=== PATIENT | female | born 1980 | race Caucasian/White ===

== ENCOUNTER 2018-07-29 07:26 | Day surgery (SDC) | payer MEDICAID, SELFPAY ==
--- NOTE | 2018-07-29 06:59 | COLE_ITS ---
Colonoscopy Report Date of procedure: 07/29/18 Pre-op diagnosis general: Diarrhea Post-op diagnosis procedure note: other (Chronic inflammation of the bowel and 2 polyps) Procedure: Colonoscopy with polypectomy and biopsies Surgeon: Maty Johnson Anesthesia proc note operative: MAC (Reji Maynard CRNA) Estimated blood loss (mL): 15 Pathology: other (multiple biopsies, 2 polyps) Complications: None Disposition: same day Indications: Mrs. Dobbins is a pleasant 38 year old female with chronic diarrhea. Risks, benefits and complications were reviewed in the office and she wished to proceed. No guarantees were given or implied. Prep: Miralax/Dulcolax Procedure Start Time: 09:00 Procedure End Time: 09:33 Retraction Time: 26 minutes Findings: Chronic inflammation worse in the sigmoid and descending colon. ? UC vs Crohns 2 polyps in the descending colon Procedure Description: After informed consent was obtained the patient was taken to the procedure room and placed in a left decubitous position. Monitors were applied and a time out was done. The patients name, date of , procedure, allergies to medications and metal in their body was reviewed. The patient was then sedated. Once sedated and comfortable a rectal exam was done. External exam was normal. Internal exam revealed a normal sphincter tone and no palpable masses. The scope was then introduced and retroflexed. No internal hemorrhoids were identified. There were a couple of skin tags noted. The scope was then advanced to the cecum without difficulty. The TI and appendiceal orifice were identified. The prep was good. The scope was advanced into the terminal ileum and biopsies were done. There was chronic inflammation with small ulcers and cobbelstoning noted throughout the colon, but worse in the descending and sigmoid colon. The scope was then slowly retracted over 26 minutes back into the rectum. Biopsies were done throughout the colon. 2 polyps were removed in the descending colon. The scope was removed and the patient was woken up and taken back to Same day surgery in stable condition. The patient tolerated the procedure well and there were no immediate complications. Follow up: I will check a CRP and CBC today. I will call the patient with results. I suspect that the patient has UC/Crohns. If she has IBD then will start her on medication and refer to [facility] or [facility] for follow up.
--- NOTE | 2018-07-29 07:00 | PDOC.DSDIS_ITS ---
Discharge Plan Disposition Patient Disposition: HOME Condition: Good Discharge Details Reason For Visit: colonoscopy Attending Provider: Maty Johnson Primary Care Provider: Karena Nixon Home Meds and New Rx's Prescriptions: Continue multivitamin [Daily Multi-Vitamin] tablet 1 tab PO DAILY RF: 0 bupropion HCl 75 mg tablet 75 mg PO DAILY RF: 0 citalopram 40 mg tablet 40 mg PO DAILY RF: 0 calcium carbonate [Calcium 600] 600 mg calcium (1,500 mg) tablet 600 mg PO BID RF: 0 cholecalciferol (vitamin D3) [Vitamin D3] 2,000 unit Capsule 2,000 unit PO BID RF: 0 lactobacillus combination no.4 [Probiotic] 3 billion cell Capsule 3,000 mmu cells PO DAILY RF: 0 Discontinued polyethylene glycol 3350 17 gram powder in packet 255 g PO DAILY Qty: 15 RF: 0 bisacodyl [Dulcolax (bisacodyl)] 5 mg tablet,delayed release (DR/EC) 5 mg PO ONCE Qty: 4 RF: 0 ibuprofen 200 mg tablet 2 tab PO PRN PRN (Reason: fever or pain) RF: 0 Discharge Instructions Instructions: Colonoscopy (DC), Low Fiber Diet (DC) Additional Instructions: Findings: Chronic inflammation. Biopsies were done. This is most likely an inflammatory bowel disease Follow up: I will call with results and then we will make a plan New Medication: none until I have biopsy results Please call or go to ER if you develop: fevers >101.5 Nausea or Vomiting Abdominal pain that is not transient DAY SURGERY UNIT POST COLONOSCOPY INSTRUCTIONS 1. Because there will be medication in your system for the next 24 hours, you may feel a little sleepy. Your coordination will be affected. Therefore: a. Do not drive or operate dangerous equipment for 24 hours. b. Do not drink alcohol beverages for 24 hours (not even beer). c. Plan to go home and rest for the day. 2. Generally there are no restrictions on your activity after a day or so has gone by, but you may feel a bit fatigued for a few days. 3 After you arrive home you may have a light meal and return to a normal diet as you can tolerate it without feeling sick to your stomach. 4. After surgery, you may feel pain or discomfort. This should be only transient , but if it persists please contact your doctor. 5. If there are any questions regarding the findings of your procedure, please feel free to contact your doctor. 6. If you are unable to contact your doctor with a problem, contact the h ospital at [phone]. 7. Continue all your regular medications unless directed otherwise. I understand the above instructions and have no questions. Signature of Patient or Responsible Adult Escort Date/Time Name of Responsible Adult Escort Signature of Nurse Date/Time Activity:: Activity as Tolerated Diet:: low fiber diet Discharge Orders Discharge Orders: Discharge Order (Routine); Ordered 07/29/18 Ordered By: Maty Johnson
[2018-07-29 07:48] VITALS: BP 129/74; PULSE 84; RESP 16; TEMP 36.5; O2SAT 95
[2018-07-29] MEDS: Lactated Ringers 1,000 ML 80 ML IV (07:57)
--- NOTE | 2018-07-29 09:08 | BOWEL_PTH ---
PATIENT: Rosi Dobbins LOC: [facility] U#:[id number] AGE/SX: 38/F ROOM: RE07/29/[address]: Maty Johnson MD : 1980 BED: DIS: 07/29/2018 SPEC #: [id number] RECD: 07/29/18 13:01 STATUS: KRISHNA Makenzie #: [id number] MEGAN: 07/29/18 09:[address]: Maty Johnson DEPT: Surgical Specimen RECD BY: Radha Crawford ENTERED: 07/29/18 13:05 SP TYPE: Bowel OTHR DR: Karena Nixon Tissues: 1 - BIOPSY BOWEL 2 - BIOPSY BOWEL 3 - BIOPSY BOWEL 4 - BIOPSY BOWEL 5 - BIOPSY BOWEL 6 - BIOPSY BOWEL Procedures: GROSS AND MICRO LEVEL 4 Comments: [id number]
[2018-07-29 10:07] VITALS: BP 110/68; PULSE 77; RESP 16; TEMP 36.8; O2SAT 99
[2018-07-29 10:08] LABS: Abs Immature Grans 0.02 k/cumm (0.0-0.09); Absolute Basophil Count 0.03 k/cumm (0.0-0.2); Absolute Eosinophil Count 0.26 k/cumm (0.0-0.7); Absolute Lymphocyte Count 1.83 k/cumm (1.2-3.4); Absolute Monocyte Count 0.96 k/cumm (0.11-0.7); Absolute Neutrophil Count 6.72 k/cumm (1.2-6.7); Basophils % 0.3; Eosinophils % 2.6; HCT 36.5 % (36.0-46.0); HGB 11.6 g/dL (12.0-15.5); Immature Grans % 0.2; Lymphocytes % 18.6; Mean Corp. HGB Concentration 31.8 g/dL (32.0-36.0); Mean Corpuscular Hemoglobin 26.3 pg (27.0-33.0); Mean Corpuscular Volume 82.8 fL (80-95); Mean Platelet Volume 10.1 fL (8.0-11.0); Monocytes % 9.8; Neutrophils % 68.5; Platelet Count 300 x1000/uL (130-400); RBC 4.41 m/cumm (4.00-5.20); RBC Distribution Width 14.6 % (11.7-14.6); White Blood Cell Count 9.82 k/cumm (4.4-10.8)
[2018-07-29 14:35] LABS: C-Reactive Protein 1.56 mg/dL (0.0-0.3)
== END 2018-07-29 11:00 | disposition home or self-care (01) ==
LOC: SUR 07:26
PROVIDERS: PCP Nurse Practitioner; Visit Provider Surgery
PROC: 0DJD8ZZ Inspection of Lower Intestinal Tract, Via Natural or Artificial Opening Endoscopic (ICD-10-PCS; CPT 45378; principal; 2018-07-29 09:00)
DX: K52.9 Noninfective gastroenteritis and colitis, unspecified (principal); K63.5 Polyp of colon
CPT/HCPCS: 45380; 81025; 88305; 85025; 86140

== ENCOUNTER 2018-12-02 09:03 | Outpatient (REF) | payer MEDICAID, SELFPAY ==
--- NOTE | 2018-12-02 08:15 | PAPFT_PTH ---
PATIENT: Rosi Dobbins LOC: [facility] U#:[id number] AGE/SX: 38/F ROOM: RE12/02/[address]: Karena Nixon : 1980 BED: DIS: 12/02/2018 SPEC #: [id number] RECD: 12/02/18 17:58 STATUS: KRISHNA REMakenzie #: [id number] MEGAN: 12/02/18 08:[address]: Karena Nixon DEPT: [facility] Cytology RECD BY: Radha Crawford Tissues: 1 - CX/ENDOCX FOR PAP SMEARS Procedures: PAP THIN PREP/UVM Screening HPV DNA PROBE Comments: [id number]
[2018-12-02 12:57] LABS: ALT 26 U/L (12-78); AST 18 U/L (15-37); Albumin 3.6 g/dL (3.4-5.0); Alkaline Phosphatase 94 U/L (46-116); Anion Gap 9.2 mmol/L (3-11); BUN 18 mg/dL (7-18); Bilirubin, Total 0.3 mg/dL (0.2-1.0); CO2 26.8 mmol/L (21.0-32.0); CREATININE 0.96 mg/dL (0.55-1.02); Calcium 8.6 mg/dL (8.5-10.1); Chloride 103 mmol/L (98-107); Cholesterol 148 mg/dL (50-200); Glucose 86 mg/dL (70-100); HDL Cholesterol 62 mg/dL (40-60); LDL CHOLESTEROL 78 mg/dL (<100); Potassium 4.3 mmol/L (3.5-5.1); Sodium 139 mmol/L (136-145); TSH (W/Ref FT4) 3.13 uIU/mL (0.358-3.74); Total Protein 7.2 g/dL (6.4-8.2); Triglyceride 42 mg/dL (30-150)
== END 2018-12-02 09:23 ==
LOC: NCHCN 09:03
PROVIDERS: PCP Nurse Practitioner; Visit Provider Nurse Practitioner
DX: Z13.29 Encounter for screening for other suspected endocrine disorder (principal); Z13.228 Encounter for screening for other metabolic disorders; Z13.220 Encounter for screening for lipoid disorders; Z00.00 Encounter for general adult medical examination without abnormal findings; Z12.4 Encounter for screening for malignant neoplasm of cervix; Z11.51 Encounter for screening for human papillomavirus (HPV)
CPT/HCPCS: 80053; 80061; 83721; 88142; 84443; 87624

== ENCOUNTER 2019-03-17 10:16 | Outpatient (CLI) | payer MEDICAID, SELFPAY ==
[2019-03-18 09:53] LABS: HBs Antibody, Quant 17.5 mIU/mL; Hepatitis B Surface Ab Positive
[2019-03-18 10:43] LABS: Hep A Total Ab w Rflx IgM Negative (NEGAT)
== END 2019-03-17 10:36 ==
LOC: LBO 10:19 → NCHCO 10:19
PROVIDERS: PCP Nurse Practitioner; Visit Provider Nurse Practitioner
DX: Z11.59 Encounter for screening for other viral diseases (principal); Z00.00 Encounter for general adult medical examination without abnormal findings
CPT/HCPCS: 36415; 86706; 86709

== ENCOUNTER 2021-10-02 02:44 | Outpatient (CLI) | payer BC, SELFPAY ==
[2021-10-02 13:38] LABS: Abs Immature Grans 0.01 10^3/uL (0.0-0.06); Absolute Basophil Count 0.05 10^3/uL (0.0-0.2); Absolute Eosinophil Count 0.22 10^3/uL (0.0-0.7); Absolute Lymphocyte Count 2.69 10^3/uL (1.2-3.4); Absolute Neutrophil Count 4.51 10^3/uL (1.2-6.7); Basophils % 0.6; Eosinophils % 2.7; HCT 38.3 % (36.0-46.0); HGB 12.3 g/dL (11.2-15.7); Immature Grans % 0.1; Lymphocytes % 33.3; MCH 27.6 pg (27.0-33.0); MCHC 32.1 % (32.0-36.0); MCV 85.9 fL (80-95); MPV 10.1 fL (8.0-11.0); Monocytes % 7.4; Neutrophils % 55.9; Nucleated RBC 0 %; Platelet Count 300 10^3/uL (130-400); RBC 4.46 10^6/uL (3.93-5.22); RDW 13.6 % (11.7-14.6); RDW-SD 42.7 fL; WBC 8.08 10^3/uL (4.4-10.8)
[2021-10-02 14:46] LABS: ALT 73 U/L (14-59); AST 25 U/L (15-37); Alkaline Phosphatase 82 U/L (46-116); Anion Gap 8.3 mmol/L (3-11); BUN 12 mg/dL (7-18); Bilirubin, Direct 0.1 mg/dL (0.0-0.2); Bilirubin, Total 0.3 mg/dL (0.2-1.0); C-Reactive Protein 0.16 mg/dL (0.0-0.3); CO2 27.7 mmol/L (21.0-32.0); CREATININE 0.9 mg/dL (0.55-1.02); Calcium 9.1 mg/dL (8.5-10.1); Chloride 103 mmol/L (98-107); Glucose 87 mg/dL (74-106); Potassium 4.3 mmol/L (3.5-5.1); Sodium 139 mmol/L (136-145); Total Protein 7.2 g/dL (6.4-8.2)
== END 2021-10-02 02:45 | disposition home or self-care (01) ==
LOC: LBO 02:44
PROVIDERS: Visit Provider Hospitalist
DX: K51.019 Ulcerative (chronic) pancolitis with unspecified complications (principal)
CPT/HCPCS: 80048; 80076; 85025; 86140

== ENCOUNTER 2021-11-22 01:56 | Outpatient (CLI) | payer BC, SELFPAY ==
[2021-11-22 15:22] LABS: Abs Immature Grans 0.05 10^3/uL (0.0-0.06); Absolute Basophil Count 0.06 10^3/uL (0.0-0.2); Absolute Lymphocyte Count 2.78 10^3/uL (1.2-3.4); Absolute Neutrophil Count 6.48 10^3/uL (1.2-6.7); Basophils % 0.6; Eosinophils % 1.9; HCT 39.5 % (36.0-46.0); HGB 12.6 g/dL (11.2-15.7); Immature Grans % 0.5; Lymphocytes % 26.3; MCH 27.5 pg (27.0-33.0); MCHC 31.9 % (32.0-36.0); MCV 86.2 fL (80-95); MPV 10.1 fL (8.0-11.0); Monocytes % 9.5; Neutrophils % 61.2; Nucleated RBC 0 %; Platelet Count 316 10^3/uL (130-400); RBC 4.58 10^6/uL (3.93-5.22); RDW 14.3 % (11.7-14.6); RDW-SD 45.1 fL; WBC 10.57 10^3/uL (4.4-10.8)
[2021-11-22 15:59] LABS: ALT 59 U/L (14-59); AST 18 U/L (15-37); Alkaline Phosphatase 78 U/L (46-116); Anion Gap 9.8 mmol/L (3-11); BUN 9 mg/dL (7-18); Bilirubin, Direct 0.1 mg/dL (0.0-0.2); Bilirubin, Total 0.4 mg/dL (0.2-1.0); C-Reactive Protein 0.15 mg/dL (0.0-0.3); CO2 26.2 mmol/L (21.0-32.0); CREATININE 0.9 mg/dL (0.55-1.02); Chloride 102 mmol/L (98-107); Glucose 93 mg/dL (74-106); Potassium 3.8 mmol/L (3.5-5.1); Sodium 138 mmol/L (136-145); Total Protein 7.2 g/dL (6.4-8.2)
== END 2021-11-22 01:57 | disposition home or self-care (01) ==
PROVIDERS: Visit Provider Hospitalist
DX: K51.019 Ulcerative (chronic) pancolitis with unspecified complications (principal)
CPT/HCPCS: 36415; 80048; 80076; 85025; 86140

== ENCOUNTER 2021-12-17 02:27 | Outpatient (CLI) | payer BC, SELFPAY ==
[2021-12-17 15:38] LABS: Abs Immature Grans 0.02 10^3/uL (0.0-0.06); Absolute Basophil Count 0.07 10^3/uL (0.0-0.2); Absolute Eosinophil Count 0.14 10^3/uL (0.0-0.7); Absolute Lymphocyte Count 2.68 10^3/uL (1.2-3.4); Absolute Monocyte Count 0.67 10^3/uL (0.1-0.8); Absolute Neutrophil Count 5.69 10^3/uL (1.2-6.7); Basophils % 0.8; Eosinophils % 1.5; HCT 35.1 % (36.0-46.0); HGB 11.4 g/dL (11.2-15.7); Immature Grans % 0.2; Lymphocytes % 28.9; MCH 28.1 pg (27.0-33.0); MCHC 32.5 % (32.0-36.0); MCV 86.7 fL (80-95); MPV 10.1 fL (8.0-11.0); Monocytes % 7.2; Neutrophils % 61.4; Nucleated RBC 0 %; Platelet Count 318 10^3/uL (130-400); RBC 4.05 10^6/uL (3.93-5.22); RDW 14.6 % (11.7-14.6); RDW-SD 46.5 fL; WBC 9.27 10^3/uL (4.4-10.8)
[2021-12-17 17:14] LABS: ALT 41 U/L (14-59); AST 21 U/L (15-37); Albumin 4.2 g/dL (3.4-5.0); Alkaline Phosphatase 71 U/L (46-116); Anion Gap 12.9 mmol/L (3-11); BUN 10 mg/dL (7-18); Bilirubin, Total 0.3 mg/dL (0.2-1.0); CO2 24.1 mmol/L (21.0-32.0); CREATININE 0.9 mg/dL (0.55-1.02); Calcium 9.6 mg/dL (8.5-10.1); Chloride 100 mmol/L (98-107); Glucose 86 mg/dL (74-106); Potassium 4.2 mmol/L (3.5-5.1); Sodium 137 mmol/L (136-145); Total Protein 7.7 g/dL (6.4-8.2)
[2021-12-17 17:22] LABS: Bilirubin, Direct 0.1 mg/dL (0.0-0.2); C-Reactive Protein 0.28 mg/dL (0.0-0.3)
== END 2021-12-17 02:28 | disposition home or self-care (01) ==
LOC: LBO 02:27
PROVIDERS: Visit Provider Hospitalist
DX: K51.019 Ulcerative (chronic) pancolitis with unspecified complications (principal)
CPT/HCPCS: 36415; 80048; 80076; 85025; 86140

== ENCOUNTER 2021-12-18 15:15 | Outpatient (REF) | payer BC, SELFPAY ==
[2021-12-18 19:02] LABS: HCT 35.1 % (36.0-46.0); HGB 11.2 g/dL (11.2-15.7); MCH 28.2 pg (27.0-33.0); MCHC 31.9 % (32.0-36.0); MCV 88.4 fL (80-95); MPV 11.2 fL (8.0-11.0); Platelet Count 335 10^3/uL (130-400); RBC 3.97 10^6/uL (3.93-5.22); RDW 15.2 % (11.7-14.6); WBC 6.98 10^3/uL (4.4-10.8)
[2021-12-18 20:08] LABS: Anion Gap 8.6 mmol/L (3-11); BUN 10 mg/dL (7-18); CO2 27.4 mmol/L (21.0-32.0); Calcium 9.1 mg/dL (8.5-10.1); Calculated LDL 101 mg/dL (<100); Chloride 102 mmol/L (98-107); Cholesterol 176 mg/dL (<200); Glucose 93 mg/dL (74-106); HDL Cholesterol 63 mg/dL (40-60); Potassium 4.2 mmol/L (3.5-5.1); Sodium 138 mmol/L (136-145); TSH 1.83 uIU/mL (0.36-3.74); Triglyceride 63 mg/dL (<150)
== END 2021-12-18 15:16 | disposition home or self-care (01) ==
LOC: NCHCN 15:15
PROVIDERS: Visit Provider Nurse Practitioner Family
DX: Z00.00 Encounter for general adult medical examination without abnormal findings (principal); F32.9 Major depressive disorder, single episode, unspecified; K52.9 Noninfective gastroenteritis and colitis, unspecified; Z68.41 Body mass index [BMI] 40.0-44.9, adult; Z13.220 Encounter for screening for lipoid disorders
CPT/HCPCS: 80048; 80061; 85027; 84443

== ENCOUNTER 2022-02-11 03:22 | Outpatient (CLI) | payer BC, SELFPAY ==
[2022-02-11 15:43] LABS: Abs Immature Grans 0.03 10^3/uL (0.0-0.06); Absolute Basophil Count 0.04 10^3/uL (0.0-0.2); Absolute Eosinophil Count 0.13 10^3/uL (0.0-0.7); Absolute Monocyte Count 0.67 10^3/uL (0.1-0.8); Absolute Neutrophil Count 4.75 10^3/uL (1.2-6.7); Basophils % 0.5; Eosinophils % 1.7; HCT 34.9 % (36.0-46.0); HGB 11.1 g/dL (11.2-15.7); Immature Grans % 0.4; Lymphocytes % 27.2; MCHC 31.8 % (32.0-36.0); MCV 87.9 fL (80-95); Monocytes % 8.7; Neutrophils % 61.5; Nucleated RBC 0 %; Platelet Count 284 10^3/uL (130-400); RBC 3.97 10^6/uL (3.93-5.22); RDW 14.4 % (11.7-14.6); RDW-SD 46.1 fL; WBC 7.72 10^3/uL (4.4-10.8)
[2022-02-11 17:09] LABS: ALT 33 U/L (14-59); AST 18 U/L (15-37); Albumin 3.8 g/dL (3.4-5.0); Alkaline Phosphatase 78 U/L (46-116); Anion Gap 8.3 mmol/L (3-11); BUN 14 mg/dL (7-18); Bilirubin, Direct 0.1 mg/dL (0.0-0.2); Bilirubin, Total 0.3 mg/dL (0.2-1.0); C-Reactive Protein 0.15 mg/dL (0.0-0.3); CO2 26.7 mmol/L (21.0-32.0); Calcium 8.6 mg/dL (8.5-10.1); Chloride 102 mmol/L (98-107); Glucose 82 mg/dL (74-106); Potassium 4.4 mmol/L (3.5-5.1); Sodium 137 mmol/L (136-145); Total Protein 6.9 g/dL (6.4-8.2)
== END 2022-02-11 03:23 | disposition home or self-care (01) ==
LOC: LBO 03:23
PROVIDERS: Visit Provider Hospitalist
DX: K51.019 Ulcerative (chronic) pancolitis with unspecified complications (principal)
CPT/HCPCS: 36415; 80048; 80076; 85025; 86140

== ENCOUNTER 2022-09-04 03:03 | Outpatient (CLI) | payer MEDICAID, SELFPAY ==
[2022-09-04 15:58] LABS: Abs Immature Grans 0.02 10^3/uL (0.0-0.06); Absolute Basophil Count 0.07 10^3/uL (0.0-0.2); Absolute Eosinophil Count 0.27 10^3/uL (0.0-0.7); Absolute Lymphocyte Count 2.49 10^3/uL (1.2-3.4); Absolute Monocyte Count 0.98 10^3/uL (0.1-0.8); Absolute Neutrophil Count 6.75 10^3/uL (1.2-6.7); Basophils % 0.7; Eosinophils % 2.6; HCT 38.2 % (36.0-46.0); HGB 12.4 g/dL (11.2-15.7); Immature Grans % 0.2; Lymphocytes % 23.5; MCH 27.5 pg (27.0-33.0); MCHC 32.5 % (32.0-36.0); MCV 85 fL (80-95); MPV 10.5 fL (8.0-11.0); Monocytes % 9.3; Neutrophils % 63.7; Platelet Count 317 10^3/uL (130-400); RBC 4.51 10^6/uL (3.93-5.22); RDW 13.2 % (11.7-14.6); RDW-SD 41.1 fL; WBC 10.58 10^3/uL (4.4-10.8)
[2022-09-04 16:42] LABS: ALT 36 U/L (14-59); AST 15 U/L (15-37); Albumin 3.7 g/dL (3.4-5.0); Alkaline Phosphatase 99 U/L (46-116); Anion Gap 8.1 mmol/L (3-11); BUN 14 mg/dL (7-18); Bilirubin, Direct 0.1 mg/dL (0.0-0.2); Bilirubin, Total 0.2 mg/dL (0.2-1.0); CO2 25.9 mmol/L (21.0-32.0); CREATININE 0.9 mg/dL (0.55-1.02); Calcium 8.9 mg/dL (8.5-10.1); Chloride 103 mmol/L (98-107); Estimated GFR 82.37 (mL/min/1.73m2); Glucose 78 mg/dL (74-106); Potassium 4.3 mmol/L (3.5-5.1); Sodium 137 mmol/L (136-145); Total Protein 7.6 g/dL (6.4-8.2)
== END 2022-09-04 03:04 | disposition home or self-care (01) ==
PROVIDERS: Visit Provider Hospitalist
DX: K51.00 Ulcerative (chronic) pancolitis without complications (principal); Z79.899 Other long term (current) drug therapy
CPT/HCPCS: 36415; 80048; 80076; 85025; 86140

== ENCOUNTER 2022-09-29 11:03 | Outpatient (REF) | payer MEDICAID, SELFPAY ==
[2022-09-29 15:19] LABS: HCT 38.3 % (36.0-46.0); HGB 12.7 g/dL (11.2-15.7); MCHC 33.2 % (32.0-36.0); MCV 84 fL (80-95); Platelet Count 314 10^3/uL (130-400); RBC 4.54 10^6/uL (3.93-5.22); RDW 13.6 % (11.7-14.6); RDW-SD 42.2 fL; WBC 7.63 10^3/uL (4.4-10.8)
[2022-09-29 15:38] LABS: Iron 42 ug/dL (50-170); Total Iron Binding Capacity 291 ug/dL (250-450); Transferrin Sat 14 % (15-50)
[2022-09-29 15:50] LABS: Anion Gap 6.8 mmol/L (3-11); BUN 12 mg/dL (7-18); CO2 28.2 mmol/L (21.0-32.0); CREATININE 0.9 mg/dL (0.55-1.02); Chloride 102 mmol/L (98-107); Estimated GFR 82.37 (mL/min/1.73m2); Ferritin 25 ng/mL (8-252); Glucose 98 mg/dL (74-106); Potassium 4.3 mmol/L (3.5-5.1); Sodium 137 mmol/L (136-145); TSH (W/Ref FT4) 3.63 uIU/mL (0.36-3.74)
== END 2022-09-29 11:04 | disposition home or self-care (01) ==
LOC: NCHCN 11:03
PROVIDERS: Visit Provider Nurse Practitioner Family
DX: R53.83 Other fatigue (principal); D64.9 Anemia, unspecified
CPT/HCPCS: 80048; 85027; 82728; 83540; 83550; 84443

== ENCOUNTER 2022-12-10 04:03 | Outpatient (CLI) | payer MEDICAID, SELFPAY ==
[2022-12-10 11:07] LABS: Abs Immature Grans 0.02 10^3/uL (0.0-0.06); Absolute Basophil Count 0.05 10^3/uL (0.0-0.2); Absolute Eosinophil Count 0.22 10^3/uL (0.0-0.7); Absolute Lymphocyte Count 2.05 10^3/uL (1.2-3.4); Absolute Monocyte Count 0.67 10^3/uL (0.1-0.8); Absolute Neutrophil Count 5.16 10^3/uL (1.2-6.7); Basophils % 0.6; Eosinophils % 2.7; HCT 38.8 % (36.0-46.0); HGB 12.7 g/dL (11.2-15.7); Immature Grans % 0.2; Lymphocytes % 25.1; MCH 27.4 pg (27.0-33.0); MCHC 32.7 % (32.0-36.0); MCV 84 fL (80-95); MPV 10.2 fL (8.0-11.0); Monocytes % 8.2; Neutrophils % 63.2; Platelet Count 276 10^3/uL (130-400); RBC 4.64 10^6/uL (3.93-5.22); RDW 14.1 % (11.7-14.6); RDW-SD 43.3 fL; WBC 8.17 10^3/uL (4.4-10.8)
[2022-12-10 11:41] LABS: ALT 35 U/L (14-59); AST 17 U/L (15-37); Albumin 3.7 g/dL (3.4-5.0); Alkaline Phosphatase 87 U/L (46-116); BUN 11 mg/dL (7-18); Bilirubin, Direct 0.1 mg/dL (0.0-0.2); Bilirubin, Total 0.6 mg/dL (0.2-1.0); C-Reactive Protein 0.34 mg/dL (0.0-0.3); Calcium 8.9 mg/dL (8.5-10.1); Chloride 104 mmol/L (98-107); Estimated GFR 72.58 (mL/min/1.73m2); Glucose 111 mg/dL (74-106); Potassium 4.1 mmol/L (3.5-5.1); Sodium 137 mmol/L (136-145); Total Protein 7.5 g/dL (6.4-8.2)
[2022-12-12 12:06] LABS: Adalimumab QN with Reflex Ab 6.2 mcg/mL
[2022-12-23 16:06] LABS: Adalimumab Ab <10.0 AU/mL (<14.0)
== END 2022-12-10 04:04 | disposition home or self-care (01) ==
LOC: LBO 04:03
PROVIDERS: Visit Provider Hospitalist
DX: K51.00 Ulcerative (chronic) pancolitis without complications (principal); D84.821 Immunodeficiency due to drugs; Z79.899 Other long term (current) drug therapy
CPT/HCPCS: 36415; 80048; 80076; 83520; 85025; 86140

== ENCOUNTER 2023-05-15 15:08 | Outpatient (CLI) | payer MEDICAID, SELFPAY ==
[2023-05-20 14:48] LABS: Adalimumab QN with Reflex Ab 8.7 mcg/mL
== END 2023-05-15 15:09 | disposition home or self-care (01) ==
LOC: LBO 15:09
PROVIDERS: Visit Provider Hospitalist
DX: K51.011 Ulcerative (chronic) pancolitis with rectal bleeding (principal)
CPT/HCPCS: 36415; 80048; 80076; 83520; 85025; 86140

== ENCOUNTER 2023-07-20 18:24 | Outpatient (REF) | payer MEDICAID, SELFPAY ==
[2023-07-20 19:47] LABS: Anion Gap 10.5 mmol/L (3-11); BUN 19 mg/dL (7-18); CO2 25.5 mmol/L (21.0-32.0); CREATININE 0.9 mg/dL (0.55-1.02); Calcium 9.6 mg/dL (8.5-10.1); Chloride 100 mmol/L (98-107); Estimated GFR 81.86 (mL/min/1.73m2); Glucose 89 mg/dL (74-106); Sodium 136 mmol/L (136-145)
== END 2023-07-20 18:25 | disposition home or self-care (01) ==
LOC: NCHCN 18:24
PROVIDERS: Visit Provider Nurse Practitioner Family
DX: I10 Essential (primary) hypertension (principal)
CPT/HCPCS: 80048

== ENCOUNTER 2023-12-21 05:07 | Outpatient (CLI) | payer MEDICAID, SELFPAY ==
--- OUTSIDE RECORDS SUMMARY | 2023-12-21 05:09 | XMS_ITS | Continuity of Care Document ---
Author Name Unknown Organization [facility] Address [address] [place] [address] Encounter [facility] FIN NBR [id number] Date(s): 01/25/23 - 01/25/23 [facility] [address] [place], [place] [address] Encounter Diagnosis Sore throat(Discharge Diagnosis) - 01/25/23 Atypical pneumonia(Discharge Diagnosis) - 01/25/23 Discharge Disposition: Home or Self Care Attending Physician: Adrian Wolfe. PA Allergies, Adverse Reactions, Alerts Substance Reaction Severity Status Adhesive Bandage Unknown Active NSAIDs Unknown Active Rubber Unknown Active Functional Status 01/25/23 Other exposure to Infectious Disease Non e Medications buPROPion 150 mg/24 hours (XL) oral tablet, extended release 0 Refill(s) Start Date: 01/25/23 Status: Ordered CeleXA 0 Refill(s) Start Date: 01/25/23 Status: Ordered DayQuil Cold & Flu oral syrup 0 Refill(s) Start Date: 01/25/23 Status: Ordered doxycycline hyclate 100 mg oral capsule 100 mg = 1 cap, Oral, BID, # 14 cap, 0 Refill(s), Pharmacy: [facility] #[id number] Start Date: 01/25/23 Stop Date: 02/01/23 Status: Ordered Humira Pre-filled Syringe 40 mg/0.8 mL subcutaneous kit 0 Refill(s) Start Date: 01/25/23 Status: Ordered methotrexate 0 Refill(s) Start Date: 01/25/23 Status: Ordered Nyquil Cold & Flu 0 Refill(s) Start Date: 01/25/23 Status: Ordered Robitussin Cough + Chest Congestion DM 0 Refill(s) Start Date: 01/25/23 Status: Ordered Tylenol 325 mg oral capsule 0 Refill(s) Start Date: 01/25/23 Status: Ordered Problem List Condition Confirmation Course Effective Dates Status Health St atus Informant Depression Confirmed Active Sleep apnea Confirmed Active Ulcerative colitis Confirmed Active Results Laboratory List Name Date Rapid Strep POCT 01/25/23 SARS-CoV-2 (Covid-19) AG ([facility]) POCT Most recent to oldest [Reference Range]: 1 SARS-CoV or CoV-2 (COVID-19) Ag ([facility]) [Negative] Negative (01/25/23 9:36 AM) Employed in healthcare? Unknown *NA* (01/25/23 9:36 AM) Symptomatic as defined by CDC? Unknown *NA* (01/25/23 9:36 AM) Date of onset (Lab) Unknown *NA* (01/25/23 9:36 AM) Hospitalized due to COVID-19? Unknown *NA* (01/25/23 9:36 AM) In ICU? Unknown *NA* (01/25/23 9:36 AM) Group care resident? Unknown *NA* (01/25/23 9:36 AM) status? Unknown *NA* (01/25/23 9:36 AM) Rapid Strep POCT [Negative] Negative (01/25/23 9:55 AM) Vital Signs Most recent to oldest [Reference Range]: 1 Temperature Tympanic [36.6-37.9 Deg C] 3 7.2 Deg C (01/25/23 9:37 AM) Peripheral Pulse Rate [60-100 bpm] 92 bp m (01/25/23 9:37 AM) Blood Pressure [90-140/60-90 mmHg] 157/1 00mmHg *HI* (01/25/23 9:37 AM) Weight 122.47 kg (01/25/23 9:37 AM) Weight Measured (lbs) 270 lb (01/25/23 9:37 AM) Height 167.64 cm (01/25/23 9:37 AM) Height/Length Measured (inches) 66 inch (01/25/23 9:37 AM) BSA Measured 2.39 m2 (01/25/23 9:37 AM) Body Mass Index 43.58 kg/m2 (01/25/23 9:37 AM) Social History Social History Type Response Tobacco Never tobacco user T obacco Use:. Sex Hospital Discharge Instructions Patient Education 01/25/2023 09:03:53 Community-Acquired Pneumonia, Adult, [id number] Community-Acquired Pneumonia, Adult Pneumonia is an infection of the lungs. It causes irritation and swelling in the airways of the lungs. Mucus and fluid may also build up inside the airways. This may cause coughing and trouble breathing. One type of pneumonia can happen while you are in a hospital. A different type can happen when you are not in a hospital (community-acquired pneumonia). What are the causes? This condition is caused by germs (viruses, bacteria, or fungi). Some types of germs can spread from person to person. Pneumonia is not thought to spread from person to person. What increases the risk? You are more likely to develop this condition if: ??? You have a long-term (chronic) disease, such as: ??? Disease of the lungs. This may be chronic obstructive pulmonary disease (COPD) or asthma. ??? Heart failure. ??? Cystic fibrosis. ??? Diabetes. ??? Kidney disease. ??? Sickle cell disease. ??? HIV. ??? You have other health problems, such as: ??? Your body's defense system (immune system) is weak. ??? A condition that may cause you to breathe in fluids from your mouth and nose. ??? You had your spleen taken out. ??? You do not take good care of your teeth and mouth (poor dental hygiene). ??? You use or have used tobacco products. ??? You travel where the germs that cause this illness are common. ??? You are near certain animals or the places they live. ??? You are older than 65 years of age. What are the signs or symptoms? Symptoms of this condition include: ??? A cough. ??? A fever. ??? Sweating or chills. ??? Chest pain, often when you breathe deeply or cough. ??? Breathing problems, such as: ??? Fast breathing. ??? Trouble breathing. ??? Shortness of breath. ??? Feeling tired (fatigued). ??? Muscle aches. How is this treated? Treatment for this condition depends on many things, such as: ??? The cause of your illness. ??? Your medicines. ??? Your other health problems. Most adults can be treated at home. Sometimes, treatment must happen in a hospital. ??? Treatment may include medicines to kill germs. ??? Medicines may depend on which germ caused your illness. Very bad pneumonia is rare. If you get it, you may: ??? Have a machine to help you breathe. ??? Have fluid taken away from around your lungs. Follow these instructions at home: Medicines ??? Take bjsh-fwr-[id number] and prescription medicines only as told by your doctor. ??? Take cough medicine only if you are losing sleep. Cough medicine can keep your body from takingmucus away from your lungs. ??? If you were prescribed an antibiotic medicine, take it as told by your doctor. Do not stop taking the antibiotic even if you start to feel better. Lifestyle ??? Do not drink alcohol. ??? Do not use any products that contain nicotine or tobacco, such as cigarettes, e-cigarettes, andchewing tobacco. If you need help quitting, ask your doctor. ??? Eat a healthy diet. This includes a lot of vegetables, fruits, whole grains, low-fat dairy products, and low-fat (lean) protein. General instructions ??? Rest a lot. Sleep for at least 8 hours each night. ??? Sleep with your head and neck raised. Put a few pillows under your head or sleep in a recliningchair. ??? Return to your normal activities as told by your doctor. Ask your doctor what activities are safe for you. ??? Drink enough fluid to keep your pee (urine) pale yellow. ??? If your throat is sore, rinse your mouth often with salt water. To make salt water, dissolve ?1 tsp (3???6 g) of salt in 1 cup (237 mL) of warm water. ??? Keep all follow-up visits as told by your doctor. This is important. How is this prevented? You can lower your risk of pneumonia by: ??? Getting the pneumonia shot (vaccine). These shots have different types and schedules. Ask your doctor what works best for you. Think about getting this shot if: ??? You are older than 65 years of age. ??? You are 19???65 years of age and: ??? You are being treated for cancer. ??? You have long-term lung disease. ??? You have other problems that affect your body's defense system. Ask your doctor if you have oneof these. ??? Getting your flu shot every year. Ask your doctor which type of shot is best for you. ??? Going to the dentist as often as told. ??? Washing your hands often with soap and water for at least 20 seconds. If you cannot use soap and water, use hand psychology instructor. Contact a doctor if: ??? You have a fever. ??? You lose sleep because your cough medicine does not help. Get help right away if: ??? You are short of breath and this gets worse. ??? You have more chest pain. ??? Your sickness gets worse. This is very serious if: ??? You are an older adult. ??? Your body's defense system is weak. ??? You cough up blood. These symptoms may be an emergency. Do not wait to see if the symptoms will go away. Get medical help right away. Call your local emergency services (911 in the [place] Do not drive yourself to the hospital. Summary ??? Pneumonia is an infection of the lungs. ??? Community-acquired pneumonia affects people who have not been in the hospital. Certain germs can cause this infection. ??? This condition may be treated with medicines that kill germs. ??? For very bad pneumonia, you may need a hospital stay and treatment to help with breathing. This information is not intended to replace advice given to you by your health care provider. Make sure you discuss any questions you have with your health care provider. Document Revised: 07/31/2020 Document Reviewed: 07/31/2020 [employer] Patient Education ?? 2021 [employer]. Physician Outpatient Note * Adrian Wolfe. DAVID: PERFORM Event Display: Office Clinic Note Physician Authored Date: [id number] RUTH DOYLE :1980 Age:42 years Sex:Female Visit Date:01/25/2023 Chief Complaint pt reports sore throat, cough, shortness of breath, wheezing, white spots on tonsils, congestion symptoms started 2 weeks ago History of Present Illness Started 2 weeks ago with typical upper respiratory symptoms including sore throat runny nose. ??Nowmostly cough. ??Patient feels she is not improving.?? Cough has caused some posttussive vomiting attimes.?? No shortness of breath at rest but does feel occasionally short of breath when she gets coughing. ??No anterior chest pain. ??No leg swelling or leg pain.?? Denies fever. ??No chills or sweats.?? No diarrhea. ??No known exposures. ??Did do some traveling.?? Up-to-date on immunizations. Physical Exam Vitals & Measurements T:??37.2?C ??(Tympanic)?? HR:??92??(Peripheral)?? BP:??157/100?? SpO2:??98%?? HT:??167.64??cm?? WT:??122.47??kg?? BMI:??43.58?? Pain Score:??7?? BSA:??2.39?? General: Alert and oriented, well nourished, no acute distress. Eye:??Pupils are reactive, conjunctiva clear. HENT: Normocephalic, throat with small exudate. ??Slight injection. ??Tonsils??not enlarged uvula midline no peritonsillar swelling. Neck: Supple, non-tender, no lymphadenopathy Lungs: Clear to auscultation and percussion, non-labored respiration. Heart: Normal rate, regular rhythm, no murmur, gallop or edema. Abdomen: Soft, non-tender, non-distended, no masses, no CVA tenderness. Musculoskeletal: Normal range of motion and strength, no tenderness or swelling. Skin: Skin is warm, dry, no rashes or lesions in examined areas. Neurologic: Awake, alert and oriented X3, normal cognition and interaction. Psychiatric: Cooperative, appropriate mood and affect. Assessment/Plan 1.??Atypical pneumonia??J18.9 Suspect possible atypical pneumonia. ??Given her duration of symptoms, posttussive vomiting.?? Start doxycycline reviewed risk benefits and alternatives. ??Recheck with primary provider as scheduled.??Patient agreeable. Ordered: doxycycline hyclate 100 mg oral capsule, 100 mg = 1 cap, Oral, BID, # 14 cap, 0 Refill(s), Pharmacy: [facility] #[id number] ?? Sore throat??J02.9 Ordered: Rapid Strep Clinic POC (RE), 01/25/23 9:52:00 EDT, Sore throat, 01/25/23 9:52:00 EDT ?? Patient Instructions Recheck with primary care this week as scheduled. ??Sooner if worse??or changes. ??Be sure to finish all antibiotics. Patient Education Community-Acquired Pneumonia, Adult, [id number] Problem List/Past Medical History Ongoing Depression Morbid obesity Sleep apnea Ulcerative colitis Historical No qualifying data Medications buPROPion 150 mg/24 hours (XL) oral tablet, extended release CeleXA DayQuil Cold & Flu oral syrup doxycycline hyclate 100 mg oral capsule, 100 mg= 1 cap, Oral, BID Humira Pre-filled Syringe 40 mg/0.8 mL subcutaneous kit methotrexate Nyquil Cold & Flu Robitussin Cough + Chest Congestion DM Tylenol 325 mg oral capsule Allergies Adhesive Bandage NSAIDs Rubber Social History Electronic Cigarette/Vaping Electronic Cigarette Use: Never. Tobacco Never tobacco user Tobacco Use:. Lab Results Test Name Test Result Date/Time SARS-CoV or CoV-2 (COVID-19) Ag ([facility]) Negative 01/25/2023 09:36 EDT Rapid Strep POCT Negative 01/25/2023 09:55 EDT Electronically Signed on 01/25/23 10:06 AM Adrian HERNANDEZ Outpatient Summary note * Adrian Wolfe. DAVID: PERFORM Event Display: Ambulatory Patient Summary Authored Date: [id number] RUTH DOYLE :1980 Age:42 years Sex:Female Visit Date:01/25/2023 Ambulatory Visit Instructions We would like to thank you for allowing us to assist you with your healthcare needs. The following includes patient education materials and information regarding your injury/illness. After you leave the office, you may get your health information including your test results, physician notes and discharge information by accessing your Patient Portal. Your Next Steps Instructions From Your Care Team Recheck with primary care this week as scheduled. ??Sooner if worse??or changes. ??Be sure to finish all antibiotics. Medications What How Much When Why Instructions New doxycycline (doxycycline hyclate 100 mg oral capsule) 1 Capsules Oral (given by mouth) 2 times a day Atypical pneumonia Duration: 7 Days Pickup at [facility] #[id number] Unchanged acetaminophen (Tylenol 325 mg oral capsule) Unchanged adalimumab (Humira Pre-filled Syringe 40 mg/ 0.8 mL subcutaneous kit) Unchanged APAP/ dextromethorphan/ phenylephrine (DayQuil Cold & Flu oral syrup) Unchanged buPROPion (buPROPion 150 mg/ 24 hours (XL) oral tablet, extended release) Unchanged citalopram (CeleXA) Unchanged dextromethorphan/ APAP/ doxylamine (Nyquil Cold & Flu) Unchanged guaiFENesin-dextromethorphan (Robitussin Cough + Chest Congestion DM) Unchanged methotrexate Pharmacy Information [facility] #[id number]: [address], [place] [id number] [phone] Your Summary Your Diagnosis Atypical pneumonia Sore throat Problems Ongoing - Any problem that you are currently receiving treatment for. Depression Morbid obesity Sleep apnea Ulcerative colitis Outstanding Tests Rapid Strep POCT SARS-CoV-2 (Covid-19) AG ([facility]) POCT Tests Performed Test Name Test Result Date/Time SARS-CoV or CoV-2 (COVID-19) Ag ([facility]) Negative 01/25/2023 09:36 EDT Rapid Strep POCT Negative 01/25/2023 09:55 EDT Your Care Team Attending Physician - Adrian Wolfe. PA Discharge Vitals Temperature??(Tympanic) 99.0 ??F (37.2 ??C) Heart Rate??(Peripheral) 92 Blood Pressure?? 157/100?? Height?? 66.00 in (167.64 cm) Weight?? 270.05 lb (122.47 kg) BMI?? 43.58 Allergies Adhesive Bandage NSAIDs Rubber Education Materials Community-Acquired Pneumonia, Adult Pneumonia is an infection of the lungs. It causes irritation and swelling in the airways of the lungs. Mucus and fluid may also build up inside the airways. This may cause coughing and trouble breathing. One type of pneumonia can happen while you are in a hospital. A different type can happen when you are not in a hospital (community-acquired pneumonia). What are the causes? This condition is caused by germs (viruses, bacteria, or fungi). Some types of germs can spread from person to person. Pneumonia is not thought to spread from person to person. What increases the risk? You are more likely to develop this condition if: ? You have a long-term (chronic) disease, such as: ? Disease of the lungs. This may be chronic obstructive pulmonary disease (COPD) or asthma. ? Heart failure. ? Cystic fibrosis. ? Diabetes. ? Kidney disease. ? Sickle cell disease. ? HIV. ? You have other health problems, such as: ? Your body's defense system (immune system) is weak. ? A condition that may cause you to breathe in fluids from your mouth and nose. ? You had your spleen taken out. ? You do not take good care of your teeth and mouth (poor dental hygiene). ? You use or have used tobacco products. ? You travel where the germs that cause this illness are common. ? You are near certain animals or the places they live. ? You are older than 65 years of age. What are the signs or symptoms? Symptoms of this condition include: ? A cough. ? A fever. ? Sweating or chills. ? Chest pain, often when you breathe deeply or cough. ? Breathing problems, such as: ? Fast breathing. ? Trouble breathing. ? Shortness of breath. ? Feeling tired (fatigued). ? Muscle aches. How is this treated? Treatment for this condition depends on many things, such as: ? The cause of your illness. ? Your medicines. ? Your other health problems. Most adults can be treated at home. Sometimes, treatment must happen in a hospital. ? Treatment may include medicines to kill germs. ? Medicines may depend on which germ caused your illness. Very bad pneumonia is rare. If you get it, you may: ? Have a machine to help you breathe. ? Have fluid taken away from around your lungs. Follow these instructions at home: Medicines ? Take sqhs-rjx-ibfkbsm and prescription medicines only as told by your doctor. ? Take cough medicine only if you are losing sleep. Cough medicine can keep your body from taking mucus away from your lungs. ? If you were prescribed an antibiotic medicine, take it as told by your doctor. Do not stop taking the antibiotic even if you start to feel better. Lifestyle ? Do not drink alcohol. ? Do not use any products that contain nicotine or tobacco, such as cigarettes, e- cigarettes, and chewing tobacco. If you need help quitting, ask your doctor. ? Eat a healthy diet. This includes a lot of vegetables, fruits, whole grains, low-fat dairy products, and low-fat (lean) protein. General instructions ? Rest a lot. Sleep for at least 8 hours each night. ? Sleep with your head and neck raised. Put a few pillows under your head or sleep in a reclining chair. ? Return to your normal activities as told by your doctor. Ask your doctor what activities are safe for you. ? Drink enough fluid to keep your pee (urine) pale yellow. ? If your throat is sore, rinse your mouth often with salt water. To make salt water, dissolve ?1tsp (3???6 g) of salt in 1 cup (237 mL) of warm water. ? Keep all follow-up visits as told by your doctor. This is important. How is this prevented? You can lower your risk of pneumonia by: ? Getting the pneumonia shot (vaccine). These shots have different types and schedules. Ask your doctor what works best for you. Think about getting this shot if: ? You are older than 65 years of age. ? You are 19???65 years of age and: ? You are being treated for cancer. ? You have long-term lung disease. ? You have other problems that affect your body's defense system. Ask your doctor if you have one of these. ? Getting your flu shot every year. Ask your doctor which type of shot is best for you. ? Going to the dentist as often as told. ? Washing your hands often with soap and water for at least 20 seconds. If you cannot use soap and water, use hand psychology instructor. Contact a doctor if: ? You have a fever. ? You lose sleep because your cough medicine does not help. Get help right away if: ? You are short of breath and this gets worse. ? You have more chest pain. ? Your sickness gets worse. This is very serious if: ? You are an older adult. ? Your body's defense system is weak. ? You cough up blood. These symptoms may be an emergency. Do not wait to see if the symptoms will go away. Get medical help right away. Call your local emergency services (911 in the [place] Do not drive yourself to the hospital. Summary ? Pneumonia is an infection of the lungs. ? Community-acquired pneumonia affects people who have not been in the hospital. Certain germs can cause this infection. ? This condition may be treated with medicines that kill germs. ? For very bad pneumonia, you may need a hospital stay and treatment to help with breathing. This information is not intended to replace advice given to you by your health care provider. Make sure you discuss any questions you have with your health care provider. Document Revised: 07/31/2020 Document Reviewed: 07/31/2020 [employer] Patient Education ?? 2021 [employer] Electronically Signed on: 01/25/2023 10:06 EDTSigned by:HUGO
[2023-12-21 16:12] LABS: Abs Immature Grans 0.02 10^3/uL (0.0-0.06); Absolute Basophil Count 0.05 10^3/uL (0.0-0.2); Absolute Eosinophil Count 0.13 10^3/uL (0.0-0.7); Absolute Lymphocyte Count 2.31 10^3/uL (1.2-3.4); Absolute Monocyte Count 0.91 10^3/uL (0.1-0.8); Absolute Neutrophil Count 4.96 10^3/uL (1.2-6.7); Basophils % 0.6; Eosinophils % 1.6; HCT 33.1 % (36.0-46.0); HGB 10.8 g/dL (11.2-15.7); Immature Grans % 0.2; Lymphocytes % 27.6; MCH 28.9 pg (27.0-33.0); MCHC 32.6 % (32.0-36.0); MCV 89 fL (80-95); MPV 10.4 fL (8.0-11.0); Monocytes % 10.9; Neutrophils % 59.1; Platelet Count 316 10^3/uL (130-400); RBC 3.74 10^6/uL (3.93-5.22); RDW 13.9 % (11.7-14.6); WBC 8.38 10^3/uL (4.4-10.8)
[2023-12-21 17:30] LABS: ALT 25 U/L (14-59); AST 12 U/L (15-37); Albumin 3.4 g/dL (3.4-5.0); Alkaline Phosphatase 74 U/L (46-116); Anion Gap 9.1 mmol/L (3-11); BUN 18 mg/dL (7-18); Bilirubin, Direct 0.1 mg/dL (0.0-0.2); Bilirubin, Total 0.2 mg/dL (0.2-1.0); C-Reactive Protein < 0.50 mg/dL (<or=0.5); CO2 26.9 mmol/L (21.0-32.0); CREATININE 1.4 mg/dL (0.55-1.02); Calcium 8.8 mg/dL (8.5-10.1); Chloride 105 mmol/L (98-107); Estimated GFR 48.17 (mL/min/1.73m2); Glucose 90 mg/dL (74-106); Potassium 4.1 mmol/L (3.5-5.1); Sodium 141 mmol/L (136-145); Total Protein 6.8 g/dL (6.4-8.2)
== END 2023-12-21 05:08 | disposition home or self-care (01) ==
LOC: LBO 05:07
PROVIDERS: Visit Provider Hospitalist
DX: K51.011 Ulcerative (chronic) pancolitis with rectal bleeding (principal)
CPT/HCPCS: 36415; 80048; 80076; 85025; 86140

== ENCOUNTER 2024-12-21 13:38 | Outpatient (REF) | payer MEDICAID, SELFPAY ==
[2024-12-21 19:44] LABS: Abs Immature Grans 0.02 10^3/uL (0.0-0.06); HCT 44.5 % (36.0-46.0); HGB 14.6 g/dL (11.2-15.7); MCH 28.2 pg (27.0-33.0); MCHC 32.8 % (32.0-36.0); MCV 86 fL (80-95); MPV 10.5 fL (8.0-11.0); Platelet Count 402 10^3/uL (130-400); RBC 5.17 10^6/uL (3.93-5.22); RDW 13.7 % (11.7-14.6); RDW-SD 43.8 fL; WBC 8.32 10^3/uL (4.4-10.8)
[2024-12-21 19:57] LABS: ALT 69 U/L (14-59); AST 20 U/L (15-37); Albumin 4.3 g/dL (3.4-5.0); Alkaline Phosphatase 87 U/L (46-116); Anion Gap 6.7 mmol/L (3-11); BUN 10 mg/dL (7-18); Bilirubin, Total 0.65 mg/dL (0.2-1.0); CO2 29.3 mmol/L (21.0-32.0); CREATININE 1.1 mg/dL (0.55-1.02); Calcium 9.6 mg/dL (8.5-10.1); Calculated LDL 110 mg/dL (<100); Chloride 103 mmol/L (98-107); Cholesterol 185 mg/dL (<200); Estimated GFR 63.94 (mL/min/1.73m2); Glucose 133 mg/dL (74-106); HDL Cholesterol 67 mg/dL (40-60); Potassium 3.9 mmol/L (3.5-5.1); Sodium 139 mmol/L (136-145); Total Protein 8.3 g/dL (6.4-8.2); Triglyceride 43 mg/dL (<150)
[2024-12-21 20:00] LABS: Absolute Neutrophil Count 5.66 10^3/uL (1.2-6.7)
[2024-12-21 20:01] LABS: Absolute Lymphocyte Count 1.91 10^3/uL (1.2-3.4); Absolute Monocyte Count 0.75 10^3/uL (0.1-0.8); Diff Comment Manual Differential; RBC Morphology Normal
[2024-12-21 20:39] LABS: Hemoglobin A1C 5.4 % (<5.7)
== END 2024-12-21 13:39 | disposition home or self-care (01) ==
LOC: NCHCN 13:38
PROVIDERS: Visit Provider Nurse Practitioner Family
DX: I10 Essential (primary) hypertension (principal); Z83.3 Family history of diabetes mellitus; N92.0 Excessive and frequent menstruation with regular cycle
CPT/HCPCS: 80053; 80061; 83036; 85025

== ENCOUNTER 2025-01-06 00:45 | Outpatient (CLI) | payer MEDICAID, SELFPAY ==
[2025-01-06 15:42] LABS: Abs Immature Grans 0.03 10^3/uL (0.0-0.06); Absolute Basophil Count 0.03 10^3/uL (0.0-0.2); Absolute Eosinophil Count 0.08 10^3/uL (0.0-0.7); Absolute Lymphocyte Count 1.64 10^3/uL (1.2-3.4); Absolute Monocyte Count 1.04 10^3/uL (0.1-0.8); Basophils % 0.3 %; Eosinophils % 0.7 %; HCT 40.9 % (36.0-46.0); HGB 13.6 g/dL (11.2-15.7); Immature Grans % 0.3 %; Lymphocytes % 15.2 %; MCH 28.6 pg (27.0-33.0); MCHC 33.3 % (32.0-36.0); MCV 86 fL (80-95); MPV 10.4 fL (8.0-11.0); Monocytes % 9.6 %; Neutrophils % 73.9 %; Platelet Count 300 10^3/uL (130-400); RBC 4.76 10^6/uL (3.93-5.22); RDW 13.8 % (11.7-14.6); RDW-SD 43.5 fL; WBC 10.82 10^3/uL (4.4-10.8)
[2025-01-06 16:19] LABS: ALT 29 U/L (14-59); AST 11 U/L (15-37); Albumin 3.9 g/dL (3.4-5.0); Alkaline Phosphatase 89 U/L (46-116); Anion Gap 9.9 mmol/L (3-11); BUN 14 mg/dL (7-18); Bilirubin, Total 0.4 mg/dL (0.2-1.0); CO2 28.1 mmol/L (21.0-32.0); CREATININE 1.1 mg/dL (0.55-1.02); Calcium 9.5 mg/dL (8.5-10.1); Chloride 102 mmol/L (98-107); Estimated GFR 63.94 (mL/min/1.73m2); Glucose 74 mg/dL (74-106); Sodium 140 mmol/L (136-145); Total Protein 7.7 g/dL (6.4-8.2)
[2025-01-09 13:58] LABS: TB Interpretation Negative (Negative)
== END 2025-01-06 00:46 | disposition home or self-care (01) ==
PROVIDERS: Visit Provider Hospitalist
DX: K51.00 Ulcerative (chronic) pancolitis without complications (principal)
CPT/HCPCS: 36415; 80053; 85025; 86480

== ENCOUNTER 2025-07-18 01:22 | Outpatient (CLI) | payer BC, SELFPAY ==
[2025-07-18 14:47] LABS: Abs Immature Grans 0.05 10^3/uL (0.0-0.06); HCT 39.6 % (36.0-46.0); HGB 13.3 g/dL (11.2-15.7); Immature Grans % 0.4 %; MCH 29.4 pg (27.0-33.0); MCHC 33.6 % (32.0-36.0); MCV 88 fL (80-95); MPV 9.6 fL (8.0-11.0); Platelet Count 303 10^3/uL (130-400); RBC 4.52 10^6/uL (3.93-5.22); RDW 13.1 % (11.7-14.6); RDW-SD 42.0 fL; WBC 11.50 10^3/uL (4.4-10.8)
[2025-07-18 16:01] LABS: Anion Gap 8.7 mmol/L (3-11); BUN 16 mg/dL (7-18); CO2 28.3 mmol/L (21.0-32.0); Calcium 9.7 mg/dL (8.5-10.1); Chloride 101 mmol/L (98-107); Estimated GFR 80.84 (mL/min/1.73m2); Glucose 105 mg/dL (74-106); Potassium 4.1 mmol/L (3.5-5.1); Sodium 138 mmol/L (136-145)
[2025-07-18 16:59] LABS: C-Reactive Protein < 0.50 mg/dL (<or=0.5)
== END 2025-07-18 01:23 | disposition home or self-care (01) ==
LOC: LBO 07-19 01:23
PROVIDERS: Visit Provider Hospitalist
DX: K51.011 Ulcerative (chronic) pancolitis with rectal bleeding (principal)
CPT/HCPCS: 36415; 80048; 85025; 86140